=== PATIENT | male | born 1940 | race Caucasian/White ===

== ENCOUNTER → 2020-10-06 | Outpatient (CLI) | payer OTHER ==
[~2020-10-06] VITALS: Ht 170.2 cm; Wt 74.8 kg
[~2020-10-06] MED LIST: CENTRUM SILVER1 EAC4 PO; FINASTERIDE5 MG PO; LIPITOR 20 MG T20 M1 PO; OMEPRAZOLE40 MG PO; PANTOPRAZOLE SO40 M1 PO
== END | disposition home or self-care (01) ==
LOC: GI
PROVIDERS: ATTEND Internal Medicine Gastroenterology
DX: Q41.0 Congenital absence, atresia and stenosis of duodenum (principal); R13.19 Other dysphagia; K21.9 Gastro-esophageal reflux disease without esophagitis; I10 Essential (primary) hypertension; E78.00 Pure hypercholesterolemia, unspecified; M10.9 Gout, unspecified; M19.90 Unspecified osteoarthritis, unspecified site; E78.5 Hyperlipidemia, unspecified; Z98.890 Other specified postprocedural states; Z79.899 Other long term (current) drug therapy; Z87.891 Personal history of nicotine dependence; Z87.442 Personal history of urinary calculi
CPT/HCPCS: 62110; 62900

== ENCOUNTER 2020-10-12 11:47 | Outpatient (CLI) | payer OTHER ==
--- NOTE | 2020-10-14 16:09 | PATH ---
[facility] [place] [address] PATHOLOGY RPT PROCEDURE Name: MERARY DELGADO Room #: REG [facility] M..#: [id number] Admission: 10/12/20 Date of : 38 Discharge: Report #: [id number] Path Case #: [id number] [facility] Accession Number: [id number] . 01 Material submitted: . PART A: gastrointestinal site - RANDOM GASTRIC R/O H. PYLORI PART B: duodenum - DUODENAL STRICTURE BX . 01 Clinical history: . EGD . 02 Diagnosis: A. Gastric mucosa, random gastric R/O H. pylori, endoscopic biopsy: - Mild reactive gastropathy. - Negative for intestinal metaplasia or atrophy. - Negative for Helicobacter pylori (properly controlled immunohistochemical stain performed). . B. Small bowel mucosa, duodenal stricture, endoscopic biopsy: - Fundic-type mucosa with moderate acute and chronic inflammation, changes compatible with moderate active peptic duodenitis. - Mild villous blunting present focally. - No increase in intraepithelial lymphocytes. - Negative for dysplasia or malignancy. ([facility]; 10/14/2020) QMS 10/14/2020 1247 Local . 02 Electronically signed: . Sachi Pathak MD, Pathologist NPI- [id number] . 01 Gross description: . A. The specimen is submitted in formalin, labeled "[place], Merary, random gastric". Received are multiple segments of pale julien tissue ranging in size from 0.3 to 0.6 cm in maximum dimensions. The specimen is submitted in cassette A1. . B. The specimen is submitted in formalin, labeled "Danny, Merary, duodenal stricture". Received are 2 segments of pale julien tissue ranging in size from 0.4 to 0.5 cm in maximum dimensions. The specimen is submitted in cassette B1. ([facility]; 10/13/2020) NRI/NRI 10/13/2020 1108 Local . 02 Pathologist provided ICD-10: K31.9, K29.80 . 02 [place] [address] PATHOLOGY RPT PROCEDURE Name: DANNYMERARY DELEON Room #: [facility].#: [id number] Admission: 10/12/20 Date of : 38 Discharge: Report #: [id number] Path Case #: [id number] [facility] . [id number], [id number], [id number] Specimen Comment: A courtesy copy of this report has been sent to [phone] Specimen Comment: [phone] Specimen Comment: Report sent to / DR TREVIÑO Performed at: [address], [place] [id number] MD Holden Flores MD Phone: [phone] Performed at: [address] [id number] MD Sachi Pathak MD Phone: [phone]
== END 2020-10-12 13:05 | disposition home or self-care (01) ==
LOC: GI 11:47 → EDSTATUS 16:25
PROVIDERS: ATTEND Internal Medicine Gastroenterology
DX: K31.5 Obstruction of duodenum (principal); K44.9 Diaphragmatic hernia without obstruction or gangrene; R13.10 Dysphagia, unspecified; J44.9 Chronic obstructive pulmonary disease, unspecified; M54.5 Low back pain; Z98.890 Other specified postprocedural states; Z96.653 Presence of artificial knee joint, bilateral
CPT/HCPCS: 62110; 62900